=== PATIENT | male | born 1950 | race African-American/Black ===

== ENCOUNTER 2018-12-12 12:10 | Emergency (ER) | payer OTHER ==
[~2018-12-12] VITALS: Ht 170.2 cm; Wt 82.6 kg
--- NOTE | 2018-12-12 12:05 | NUR ---
ED Nurse Note: PT STATES THAT HE TAKES 5-6 PILLS BUT DOES NOT KNOW THE NAME OF THE MEDS.
[~2018-12-12 12:10] MED LIST: TRAMADOL HCL50 MG ORAL
--- NOTE | 2018-12-12 12:11 | NUR ---
ED Nurse Note: PT FROM HOME BROUGHT IN BY AMBULANCE BY RA 826 DUE TO LEFT KNEE PAIN AND LEFT FOOT PAIN X 2 DAYS. DENIES ANY RECENT INJURY/TRAUMA. PT STATES IT IS MORE PAINFUL WHEN HE WALKS AROUND. TIANNA PAIN IN HIS CALF. PT IS AAO X4, ABLE TO MOVE LOWER EXTREMITIES NOTED RIGHT SIDE RESIDUAL WEAKNESS FROM PREVIOUS STROKE.
[2018-12-12 12:17] VITALS: BP 101/84
--- NOTE | 2018-12-12 12:44 | Emergency Room Report ---
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 he denies any fall or injury. He reports that last night when he got up to use the restroom he felt that his left knee locked and had a shooting pain 10 out of 10 radiating to his left foot denying tingling and numbness, denying calf tenderness or pressure. Patient has been taking pain medication has been prescribed by his primary doctor however unknown name. Denies chest pain, shortness of breath, weakness on the left side, headache, blurry vision, dizziness, shortness of breath. Denies pain in left hip, left buttocks, saddle paresthesia, urinary and bowel incontinence. (Edelmira Casas) Allergies: Coded Allergies: No Known Allergies (Unverified , 01/17/15) Patient History Past Medical History: see triage record Past Surgical History: unable to obtain Pertinent Family History: unable to obtain Immunizations: UTD Reviewed Nursing Documentation: PMH: Agreed; PSxH: Agreed (Edelmira Casas) Nursing Documentation-PMH Past Medical History: No History, Except For Hx Cardiac Problems: No - Arthritis,Gout Hx Cerebrovascular Accident: Yes - 2016 (Edelmira Casas) Review of Systems All Other Systems: negative except mentioned in HPI (Edelmira Casas) Physical Exam Vital Signs Date Time Temp Pulse Resp B/P (MAP) Pulse Ox O2 Delivery O2 Flow Rate FiO2 12/12/18 12:01 98.4 82 18 107/66 (80) 98 Room Air Sp02 EP Interpretation: reviewed, normal General Appearance: normal inspection, well appearing, no apparent distress, alert, GCS 15, non-toxic Head: normocephalic, atraumatic Eyes: bilateral eye normal inspection, bilateral eye PERRL ENT: normal ENT inspection, hearing grossly normal, normal pharynx Neck: normal inspection, full range of motion, supple Respiratory: normal inspection, chest non-tender, lungs clear, normal breath sounds, no rhonchi, no retraction, no wheezing Cardiovascular #1: normal inspection, regular rate, rhythm, no edema, no murmur , normal capillary refill Cardiovascular #2: 2+ dorsalis pedis (R), 2+ dorsalis pedis (L) Gastrointestinal: normal inspection, non tender Genitourinary: no CVA tenderness Musculoskeletal: back normal, digits/nails normal, non-tender, no calf tenderness, pelvis stable, other - homans sign neg Neurologic: normal inspection, alert, oriented x3, responsive Psychiatric: normal inspection, judgement/insight normal Skin: normal inspection, normal color, no rash Lymphatic: normal inspection, no adenopathy (Edelmira Casas) Medical Decision Making PA Attestation All my diagnoses and treatment plans were reviewed and discussed with my supervising physician (Edelmira Casas) Medicare Attestation The history of Tony Beaulieu has been reviewed and management options for him have been examined and discussed by Sreedhar Daily. I have personally examined and interviewed the patient. 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 he denies any fall or injury. He reports that last night when he got up to use the restroom he felt that his left knee locked and had a shooting pain 10 out of 10 radiating to his left foot denying tingling and numbness, denying calf tenderness or pressure. Patient has been taking pain medication has been prescribed by his primary doctor however unknown name. Denies chest pain, shortness of breath, weakness on the left side, headache, blurry vision, dizziness, shortness of breath. Denies pain in left hip, left buttocks, saddle paresthesia, urinary and bowel incontinence. Ddx considered but are not limited to: DVT, arthritis of knee, osteoprosis, unilateral weakness due to stroke Vital signs: are WNL, pt. is afebrile H&PE are most consistent with: arthritis of knee ORDERS: left knee and left foot Xray , PT, PTT, INR, voltaren gel ED INTERVENTIONS: None required at this time. DISCHARGE: At this time pt. is stable for d/c to home. Will provide printed patient care instructions, and any necessary prescriptions. Care plan and follow up instructions have been discussed with the patient prior to discharge. (Edelmira Casas) Other X-Ray Diagnostic Results Other X-Ray Diagnostic Results #1: X-Ray ordered: left knee # of Views/Limited Vs Complete: 2 View Indication: Pain EP Interpretation: Yes PA Xray: Interpretation reviewed, by supervising MD, and agrees with findings. Interpretation: no dislocation, no soft tissue swelling Impression: No acute disease Electronically Signed by: edelmira matamoros PA-C Other X-Ray Diagnostic Results #2: X-Ray ordered: left foot # of Views/Limited Vs Complete: 2 View Indication: Pain EP Interpretation: Yes PA Xray: Interpretation reviewed, by supervising MD, and agrees with findings. Interpretation: no dislocation, no soft tissue swelling, no fractures Impression: No acute disease Electronically Signed by: edelmira matamoros PA-C (Edelmira Casas) Last Vital Signs Date Time Temp Pulse Resp B/P (MAP) Pulse Ox O2 Delivery O2 Flow Rate FiO2 12/12/18 12:17 98.4 68 16 101/84 99 Room Air (Edelmira Casas) Disposition: HOME, SELF-CARE Condition: Stable Scripts Diclofenac Sodium (VOLTAREN) 100 Gm Gel..gram. 2 GM TP BID, #100 GM Prov: Edelmira Casas 12/12/18 Patient Instructions: Arthritis, [id number] Additional Instructions: Follow-up with a primary care provider for referral to physical therapy and further management of arthritis Edelmira Casas Dec 12, 2018 12:44 Sreedhar Daily MD Dec 22, 2018 13:51
[2018-12-12 12:53] LABS: BASOPHILS % (AUTO) 1.7 % (0.0-2.0); EOSINOPHILS % (AUTO) 1.9 % (0.0-3.0); HEMATOCRIT 40.8 % (42.0-52.0); HEMOGLOBIN 13.3 G/DL (14.2-18.0); MEAN CORPUSCULAR VOLUME 84 FL (80-99); MONOCYTES % (AUTO) 9.9 % (1.0-10.0); NEUTROPHILS % (AUTO) 60.5 % (45.0-75.0); PLATELET COUNT 272 K/UL (150-450); RED BLOOD COUNT 4.88 M/UL (4.70-6.10); RED CELL DISTRIBUTION WIDTH 13.5 % (11.6-14.8); WHITE BLOOD COUNT 8.6 K/UL (4.8-10.8)
[2018-12-12] MEDS ORDERED: VOLTAREN100 G1 TP (13:29)
--- NOTE | 2018-12-12 13:36 | Diagnostic Imaging Report ---
Indication: Foot pain Comparison: None Findings: 3 views of the left foot were obtained. No acute fractures, malalignment, erosions or periostitis are identified. There is mild narrowing of the first MTP joint. Soft tissues are unremarkable. Impression: No acute findings
--- NOTE | 2018-12-12 13:37 | Diagnostic Imaging Report ---
Indication: Left knee pain 2 views of the left knee were obtained. Findings: Generalized joint space narrowing demonstrated. Alignment is normal. No fracture identified. Bones are osteopenic. There is a probable joint effusion. IMPRESSION: Osteoarthritis. Joint effusion
[2018-12-12 14:00] VITALS: BP 114/70
[2018-12-12 15:00] VITALS: BP 129/68
--- NOTE | 2018-12-12 15:00 | NUR ---
ER DISCHARGE NOTE: Patient is cleared to be discharged per PA, pt is aox4, on room air, with stable vital signs. pt was given dc and prescription instructions, pt was able to verbalize understanding, pt id band removed. pt was sent home via [facility]. pt took all belongings.
== END 2018-12-12 15:00 | disposition home or self-care (01) ==
LOC: EDBD 12:10 → EMR 12:40
DX: M17.12 Unilateral primary osteoarthritis, left knee (principal); I10 Essential (primary) hypertension; Z86.73 Personal history of transient ischemic attack (TIA), and cerebral infarction without residual deficits; Z79.899 Other long term (current) drug therapy; M25.572 Pain in left ankle and joints of left foot
CPT/HCPCS: 36415; 85025; 85610; 85730; 99284